=== PATIENT | male | born 1965 | race Caucasian/White ===

== ENCOUNTER → 2020-05-23 | Day surgery (SDC) | payer BC ==
[2020-05-23] MEDS: Lactated Ringers 1,000 ML IV SCH (12:01)
--- NOTE | 2020-05-26 08:06 | OR ---
DATE OF OPERATION: 05/23/2020 PREOPERATIVE DIAGNOSIS: RIGHT UPPER QUADRANT PAIN. POSTOPERATIVE DIAGNOSIS: RIGHT UPPER QUADRANT PAIN. SURGEON: Layo Tripp MD PROCEDURE: DIAGNOSTIC ESOPHAGOGASTRODUODENOSCOPY WITH BIOPSIES X3, NIVIA. ANESTHESIA: MAC. COMPLICATIONS: None. SPECIMEN: 1. Duodenal bulb biopsy x1. 2. Pyloric biopsy x1. 3. Antral NIVIA. 4. Fundal polyp. FINDINGS: 1. Full-length EGD. 2. Jiwt-rg-znrcqsfy duodenitis, duodenal bulb with multiple small erosions. 3. Healed ulcer, distal antrum, in the peripyloric area. 4. Adenomatous polyp, mid fundus. RECOMMENDATIONS: Ongoing medical followup with Alexander Breaux, the patient's primary provider. INDICATIONS: The patient has been having some ongoing issues with right upper quadrant pain. A gallbladder ultrasound and HIDA scan were apparently normal and Alexander sent the patient for a diagnostic EGD. DESCRIPTION OF PROCEDURE: The patient was prepped and draped, placed in the left lateral decubitus position. A lubricated Olympus gastroscope was inserted over a bit, advanced to cricopharyngeus area, and easily intubated into the esophagus. The esophageal lining was benign in its entire course. Z-line is crisp and sharp at 39 cm. No distal esophagitis, stricturing, ulceration, or Doherty's changes seen. The scope advanced into the stomach, through the pylorus, and into the second portion of the duodenum. The second portion of the duodenum was benign. The duodenal bulb itself has [id number]-cv-ejyrvogz duodenitis. There are 3 or 4 small little erosions. No active bleeding. Biopsy was taken. The scope was brought back into the stomach and retroflexed. The upper fundus and cardia were unremarkable. Midportion of the fundus had 2 or 3 very small adenomatous polyps. We did remove one with a forceps. The antrum itself appeared for the most part benign. There appeared to be a linear healed ulcer in the peripyloric area. We did do a biopsy of that. CLOtest was obtained. Air was suctioned and the scope removed without complication. RAJENDRA/ANNA /[id number]
== END ==
LOC: CC.SDS 11:38
PROVIDERS: ATTEND Family Medicine
DX: K31.7 Polyp of stomach and duodenum (principal); K31.819 Angiodysplasia of stomach and duodenum without bleeding; K29.80 Duodenitis without bleeding; K26.9 Duodenal ulcer, unspecified as acute or chronic, without hemorrhage or perforation; K21.9 Gastro-esophageal reflux disease without esophagitis; G47.00 Insomnia, unspecified; Z88.0 Allergy status to penicillin; Z79.899 Other long term (current) drug therapy; Z98.890 Other specified postprocedural states
CPT/HCPCS: 43239; 87081; J7120